=== PATIENT | male | born 1990 ===

== ENCOUNTER 2018-04-15 17:05 | Emergency (ER) | payer MEDICAID ==
[2018-04-15 17:12] VITALS: BP 116/79; PULSE 85; RESP 18; TEMP 97.5; O2SAT 100
--- NOTE | 2018-04-15 18:18 | C.PDOC ---
Time Seen by Provider: 04/15/18 17:29 Chief Complaint (Nursing): Finger,Hand,&Wrist Past Medical History Vital Signs: Last Vital Signs Temp 97.5 F L 04/15/18 17:09 Pulse 85 04/15/18 17:09 Resp 18 04/15/18 17:09 BP 116/79 04/15/18 17:09 Pulse Ox 100 04/15/18 17:09 - Medical History PMH: Asthma, Back Problems - [facility] INJECT/INFUSE NEC (03/02/15) Family History: States: Unknown Family Hx - Social History Hx Alcohol Use: Yes Hx Substance Use: No - Immunization History Hx Tetanus Toxoid Vaccination: (not sure) ED Course And Treatment O2 Sat by Pulse Oximetry: 100 Disposition - Disposition Referrals: Angie Bell MD [Staff Provider] - Disposition: HOME/ ROUTINE Disposition Time: 18:19 Condition: STABLE Additional Instructions: Follow up with the medical doctor within 1-2 days without fail. return if worsened. Prescriptions: Acetaminophen [Tylenol] 325 mg PO Q6 PRN #30 tab PRN Reason: Pain, Mild (1-3) traMADol [Ultram] 50 mg PO Q6 PRN #20 tab PRN Reason: Pain Instructions: Hand Fracture (DC) Forms: [facility] (N[place]ien), Work Excuse - Clinical Impression Clinical Impression: Hand fracture
--- NOTE | 2018-04-15 18:23 | C.PDOC ---
History Of Present Illness 27-year-old male, presents to the emergency department with complaints of right hand injury. Patient states he was playing with his little brother, and when he tried to punch him, his fist went into the wall instead. patient reports bleeding profusely since, and pain in the index finger on right hand. Denies any numbness/weakness, nausea/vomiting, or any other associated symptoms. No other complaints at this time. Time Seen by Provider: 04/15/18 17:29 Chief Complaint (Nursing): Finger,Hand,&Wrist History Per: Patient History/Exam Limitations: no limitations Past Medical History Reviewed: Historical Data, Nursing Documentation, Vital Signs Vital Signs: Last Vital Signs Temp 97.5 F L 04/15/18 17:09 Pulse 85 04/15/18 17:09 Resp 18 04/15/18 17:09 BP 116/79 04/15/18 17:09 Pulse Ox 100 04/15/18 17:09 - Medical History PMH: Asthma, Back Problems - [facility] Procedures INJECT/INFUSE NEC (03/02/15) Family History: States: No Known Family Hx - Social History Hx Alcohol Use: Yes Hx Substance Use: No - Immunization History Hx Tetanus Toxoid Vaccination: (not sure) Review Of Systems Constitutional: Negative for: Fever, Weakness Musculoskeletal: Positive for: Hand Pain Neurological: Negative for: Weakness, Numbness Physical Exam - Physical Exam Appears: Non-toxic, No Acute Distress Skin: Warm, Dry, No Rash Head: Atraumatic, Normacephalic Eye(s): bilateral: Normal Inspection Oral Mucosa: Moist Neck: Normal ROM Respiratory: No Accessory Muscle Use (no apparent respiratory distress) Extremity: Tenderness, Capillary Refill (<2 seconds), Deformity, Swelling (mild), Other (+deformity to right hand. ) Pulses: Left Radial: Normal, Right Radial: Normal Neurological/Psych: Oriented x3, Normal Speech, Normal Motor, Normal Sensation ED Course And Treatment O2 Sat by Pulse Oximetry: 100 Pulse Ox Interpretation: Normal (RA) Medical Decision Making Medical Decision Making: Tetanus is up to date. The case was discussed with Dr. Bell (Hand surgeon oncall) who has reviewed the films, she is aware there is bleeding over the fracture. Dr. Bell states that this is most likely a skin tear and not an open fracture. The wound was cleansed with pressurized saline and betadine. Laceration was closed with skin glue and steri strip. Volar splint was applied by me. The patient was instructed to follow up with Hand surgeon within 1-2 days without fail. Disposition - Disposition Referrals: Angie Bell MD [Staff Provider] - Disposition: HOME/ ROUTINE Disposition Time: 17:45 Condition: STABLE Additional Instructions: Follow up with the medical doctor within 1-2 days without fail. return if worsened. Prescriptions: Acetaminophen [Tylenol] 325 mg PO Q6 PRN #30 tab PRN Reason: Pain, Mild (1-3) traMADol [Ultram] 50 mg PO Q6 PRN #20 tab PRN Reason: Pain Instructions: Hand Fracture (DC) Forms: [facility] (Macedonian), Work Excuse - Clinical Impression Clinical Impression: Hand fracture, Finger laceration - Scribe Statement The provider has reviewed the documentation as recorded by the Scribe (Kierra Celestin) All medical record entries made by the Scribe were at my direction and pe rsonally dictated by me. I have reviewed the chart and agree that the record accurately reflects my personal performance of the history, physical exam, medical decision making, and the department course for this patient. I have also personally directed, reviewed, and agree with the discharge instructions and disposition.
--- NOTE | 2018-04-16 10:10 | RAD ---
PROCEDURE: Right Hand Radiographs. HISTORY: Injury, pain over the 2nd MCP COMPARISON: None. FINDINGS: BONES: Bone alignment and mineralization are normal. An acute comminuted impacted nondisplaced fracture in head of the 2nd metacarpal with mild dorsal angulation. JOINTS: The joint spaces are preserved. SOFT TISSUES: There is mild soft tissue swelling overlying the 2nd metacarpal. OTHER FINDINGS: None. IMPRESSION: Acute comminuted impacted nondisplaced fracture in the head of the 2nd metacarpal with mild dorsal angulation and surrounding soft tissue swelling.
== END 2018-04-15 18:43 | disposition home or self-care (01) ==
LOC: C.ER 17:05
DX: S62.390A Other fracture of second metacarpal bone, right hand, initial encounter for closed fracture (principal); S61.210A Laceration without foreign body of right index finger without damage to nail, initial encounter; W22.01XA Walked into wall, initial encounter